=== PATIENT | male | born 1995 | race Caucasian/White ===

== ENCOUNTER 2016-06-23 06:40 | Day surgery (SDC) | payer SELFPAY ==
--- NOTE | 2016-06-22 17:24 | HP ---
DATE OF ADMISSION: 06/22/2016 HISTORY OF PRESENT ILLNESS: This is the first orthopedic outpatient admission for surgery for this 20-year- old male, who is experiencing increasing pain and problems with a fifth metacarpal fracture of the right hand. The patient suffered the injury on 06/13/2016. He was seen in the [facility] and new x-rays found. The patient have increased fracture displacement to almost 90 degrees or unacceptable position. With this in mind, the patient is now being brought in on outpatient basis for a surgical closed possible open reduction of the distal fifth metacarpal fracture and pin fixation. The procedure has been outlined to him. He understands risks and complications involved with that and has consented to the surgery. ALLERGIES: No known drug allergies. PAST MEDICAL HISTORY: Has been a healthy 20-year-old male, in [id number] distress. PHYSICAL EXAMINATION: HEAD, EYES, EARS, NOSE, AND THROAT: Normocephalic. NECK: Supple. CHEST: Clear. COR: Regular rate. ABDOMEN: Soft. GENITOURINARY: Intact. SOCIAL HISTORY: The patient has a negative alcohol use. Tobacco use is a quarter pack per day. He notes negative bleeding problem and negative blood clotting problem. ASSESSMENT: A displaced fifth metacarpal fracture of the right hand. PLAN: The plan is for the patient to undergo a closed possible open reduction of the fifth metacarpal fracture. ANA /[id number]
[~2016-06-23 06:40] MED LIST: Sodium Chloride 0.9% 10 ML Syringe FLUSH PRN
[2016-06-23] MEDS: Lidocaine 1%/Sod Bicarbonate in NS 8.4% 1 ML Syringe IV PRN (07:05)
[2016-06-23] MEDS: Lactated Ringers 1,000 ML IV SCH (07:05)
--- NOTE | 2016-06-23 07:16 | PCM.PREANE ---
Preanesthetic Assessment - ANESTHESIA/TRANSFUSION/FAMILY HX Anesthesia/Transfusion History: No Prior Anesthesia, No Prior Transfusion(s) Family History of Anesthesia Reaction: No - REVIEW OF SYSTEMS Constitutional: Reports: no symptoms POLL CLERK: Reports: no symptoms Respiratory: Reports: no symptoms Cardiovascular: Reports: no symptoms GI: Reports: no symptoms Other: Reports: none - PHYSICAL ASSESSMENT HR: 51 O2 Sat by Pulse Oximetry: 99 RR: 16 BP: 108/57 Temp: 97.2 C Height: 1.8 m Weight: 86.636 kg NPO Status Date: 06/23/16 NPO Status Time: 20:00 ASA Class: 2 Mental Status: alert & oriented x3 Airway Class: Mallampati = 1 Dentition: Reports: normal dentition (left upper molar broken tooth ) Thyro-Mental Finger Breadths: 3 Mouth Opening Finger Breadths: 5 ROM/Head Extension: full Respiratory Status: lungs clear to auscultation bilaterally Cardiovascular Status: regular rate & rhythm, normal S1, S2, no murmur, blood pressure WNL - LAB Values: Reviewed labs drawn on 06/22/16 Hgb 14.9 Plt 315 - ALLERGIES Allergies/Adverse Reactions: Allergies Allergy/AdvReac Type Severity Reaction Status Date / Time No Known Allergies Allergy Verified 06/22/16 14:46 - BLOOD Blood Available: No - ANESTHESIA PLAN Preop Beta Jaelyn: No Anesthesia Type Planned: general anesthesia - ACKNOWLEDGEMENTS Pt an appropriate candidate for the planned anesthesia: Yes Alternatives and risks of anesthesia discussed w pt/guardian: Yes Pt/Guardian understands and agree with anesthesia plan: Yes PreAnesthesia Questionnaire - Past Health History Medical/Surgical History: Denies Medical/Surgical History HEENT History: Reports: None Cardiovascular History: Reports: None Respiratory History: Reports: None Gastrointestinal History: Reports: None Genitourinary History: Reports: None Musculoskeletal History: Reports: None Neurological History: Reports: None Psychiatric History: Reports: None Endocrine/Metabolic History: Reports: None Hematologic History: Reports: None Immunologic History: Reports: None Oncologic (Cancer) History: Reports: None Dermatologic History: Reports: None - Infectious Disease History Infectious Disease History: Reports: None - Past Surgical History HEENT Surgical History: Reports: None Cardiovascular Surgical History: Reports: None Respiratory Surgical History: Reports: None GI Surgical History: Reports: None Male Surgical History: Reports: None Endocrine Surgical History: Reports: None Neurological Surgical History: Reports: None Musculoskeletal Surgical History: Reports: None Oncologic Surgical History: Reports: None - SUBSTANCE USE Smoking Status *Q: Current Some Day Smoker Tobacco Use Within Last Twelve Months: Cigarettes Recreational Drug Use History: No - HOME MEDS Home Medications: Home Meds . [No Known Home Meds] 06/22/16 [History] - CURRENT (IN HOUSE) MEDS Current Meds: Current Medications Lactated Ringer's (Ringers, Lactated) 1,000 mls @ 125 mls/hr IV ASDIRECTED DAGOBERTO Stop: 06/23/16 23:00 Lidocaine/Sodium Bicarbonate (Buffered Lidocaine 1% In Ns 8.4%) 0.25 ml IV ONETIME PRN PRN Reason: Prior to IV Start Stop: 06/23/16 18:00 Sodium Chloride (Saline Flush) 10 ml FLUSH ASDIRECTED PRN PRN Reason: Keep Vein Open Stop: 06/23/16 18:00
[2016-06-23] MEDS ORDERED: Ondansetron 4 MG/2 ML SDV IVPUSH PRN ×2 (07:40→08:41)
[2016-06-23] MEDS ORDERED: Ketorolac 30 MG/ML SDV IVPUSH PRN (07:40)
[2016-06-23] MEDS ORDERED: fentaNYL 100 MCG/2 ML SDV ONE ×2 (07:41→09:11)
[2016-06-23] MEDS ORDERED: Propofol 200 MG/20 ML SDV ONE (07:41)
[2016-06-23] MEDS ORDERED: Midazolam 1 MG/ML 2 ML SDV ONE (07:42)
[2016-06-23] MEDS ORDERED: Lidocaine 1% 2 ML SDV ONE ×2 (07:44)
[2016-06-23] MEDS ORDERED: Lactated Ringers 1,000 ML ONE (08:16)
[2016-06-23] MEDS ORDERED: Ondansetron 4 MG/2 ML SDV ONE (08:32)
[2016-06-23] MEDS ORDERED: Dexamethasone 4 MG/ML 5 ML MDV ONE (08:32)
[2016-06-23] MEDS ORDERED: diphenhydrAMINE 50 MG/ML SDV IVPUSH PRN (08:41)
[2016-06-23] MEDS: Iodine/Sodium Iodide 2% Tincture 30 ML Bottle ONE (08:52)
[2016-06-23] MEDS: Bupivacaine 0.5% 30 ML SDV ONE (08:56)
[2016-06-23] MEDS ORDERED: Ketorolac 30 MG/ML SDV ONE (09:01)
--- NOTE | 2016-06-23 09:25 | PCM.POSTAN ---
POST ANESTHESIA ASSESSMENT - MENTAL STATUS Mental Status: alert - VITAL SIGNS Pulse Rate: 38 SaO2: 100 Resp Rate: 12 Blood Pressure: 137/85 Temperature: 98.1 C - RESPIRATORY Respiratory Status: respiratory rate WNL, airway patent, O2 saturation stable - CARDIOVASCULAR CV Status: pulse rate WNL, blood pressure stable - GASTROINTESTINAL GI Status: no symptoms - PAIN Pain Score: 6 (resting comfortably ) - POST OP HYDRATION Hydration Status: adequate & stable
[2016-06-23] MEDS: Morphine 15 MG Tab.ER PO SCH (09:34)
[2016-06-23] MEDS: fentaNYL 100 MCG/2 ML SDV IVPUSH PRN (09:39)
[2016-06-23] MEDS ORDERED: Meperidine PF 50 MG/ML Syringe IVPUSH PRN (09:50)
[2016-06-23] MEDS: Acetaminophen/HYDROcodone 325-5 MG Tab PO PRN (09:52)
--- NOTE | 2016-06-23 10:01 | CR ---
Right fifth finger: Five view centered to the right fifth finger were obtained utilizing C-arm device. Comparison: Previous study of 06/22/16. Study shows reduction and pinning of distal right fifth metacarpal fracture. Previous angulation has been corrected. Fluoroscopy time given as 15.1 seconds. Impression: 1. Reduction and pinning of previously noted fifth metacarpal fracture. Diagnostic code #2
[2016-06-23 10:40] VITALS: BP 121/75
--- NOTE | 2016-06-23 11:09 | PCM48HPAN ---
Post Anesthesia Note - EVALUATION WITHIN 48HRS OF ANESTHETIC Vital Signs in Normal Range: Yes Patient Participated in Evaluation: Yes Respiratory Function Stable: Yes Airway Patent: Yes Cardiovascular Function Stable: Yes Hydration Status Stable: Yes Pain Control Satisfactory: Yes Nausea and Vomiting Control Satisfactory: Yes Mental Status Recovered: Yes - COMMENTS/OBSERVATIONS Free Text/Narrative:: Patient discharged per protocol. Report from nurse notes that he met all criteria and was stable to discharge.
--- NOTE | 2016-06-24 07:10 | OR ---
DATE OF OPERATION: 06/23/2016 SURGEON: Anoop Grant MD PREOPERATIVE DIAGNOSIS: Displaced unstable distal fifth metacarpal fracture, right hand. POSTOPERATIVE DIAGNOSIS: Displaced unstable distal fifth metacarpal fracture, right hand. ANESTHESIA: General. OPERATION PERFORMED: 1. Attempted closed reduction, distal fifth metacarpal fracture. 2. Open reduction and internal fixation K-wire, distal fifth metacarpal fracture. DESCRIPTION OF PROCEDURE: The patient was taken to the operating room in supine position and was placed under general anesthesia. The right hand was then prepped and draped by standard technique. The initial attempt at closed reduction was carried out using fluoroscopy to view the reduction. The fracture continued to maintain a severe angulation into the palmar aspect of his hand. Once that was found not to move or shift, it was felt there was probably soft tissue interposition. The operation then proceeded to a standard prepping and approach to the fifth metacarpal after the tourniquet was inflated. A lateral incision was used staying to the lateral side of the fifth metacarpal and incision carried, beginning proximally distal two-thirds of the metacarpal and extending to the joint line, penetrating through the skin and subcutaneous tissues. These were bluntly dissected down to the extensor tendon sheath. This was incised on the lateral side and then the operation identified the fracture. The periosteal elevators were used to lift the soft tissues off the fracture site on both sides and underneath the fracture area. Then, the interposition of the soft tissue was identified and removed. The fracture was then manipulated and brought back into place. It was a very unstable type fracture. Once the fracture was brought back, where it had adequate reduction, the K-wire was then inserted on the radial side of the fifth metacarpal and guided across the fracture with the fracture reduced. There was still a slight offset at the dorsal aspect. This ridge of bone was lightly trimmed with a rongeur, but otherwise the remaining portion of the fracture was reduced quite nicely and held in place by a cerclage #1 Vicryl suture to help reinforce the K-wire that was present. The fluoroscopy was used. Hard copy x-rays were taken. These again were found to be satisfactory of good reduction. The operation then proceeded with irrigation of wound area. Periosteal tissues were then closed with a 5-0 Vicryl. The skin was closed with 4-0 Prolene. The patient was placed in standard dressings and splint. He tolerated this whole procedure well and left the operating room in stable condition to his room for recovery. ESTIMATED BLOOD LOSS: MMODAL /[id number]
== END 2016-06-23 10:36 | disposition home or self-care (01) ==
LOC: JD.SDS 06:40
PROVIDERS: ATTEND Specialist
PROC: 0PSP04Z Reposition Right Metacarpal with Internal Fixation Device, Open Approach (ICD-10-PCS; principal; 2016-06-23)
DX: S62.396A Other fracture of fifth metacarpal bone, right hand, initial encounter for closed fracture (principal); F17.210 Nicotine dependence, cigarettes, uncomplicated
CPT/HCPCS: 26615; 76000; A9270; J1100; J1885; J2250; J2405; J3010; J7120; 01830; J2704

== ENCOUNTER 2020-03-20 16:48 | Emergency (ER) | payer SELFPAY ==
--- NOTE | 2020-03-20 17:48 | EDM.PDOC ---
ED HPI GENERAL MEDICAL PROBLEM - General Chief Complaint: General Stated Complaint: LUMP ON SIDE OF NECK AND SORE THROAT Time Seen by Provider: 03/20/20 17:24 Source of Information: Reports: Patient, RN Notes Reviewed History Limitations: Reports: No Limitations - History of Present Illness INITIAL COMMENTS - FREE TEXT/NARRATIVE: Patient is a 24-year-old male who presents to the ED for the evaluation of a lump to his right mandible. The patient notes he was seen at [facility] last week, he was tested for COVID-19 and strep throat, and was found to have strep throat at that time. He was placed on amoxicillin and took this as prescribed, but he still has the lump underneath his right mandible. He states that it does become bigger when he eats and becomes more tender. He is not had any fevers or chills, cough or shortness of breath. He is not in any respiratory distress, and he states he can still swallow just fine. He does have some bad teeth on this area, but states he does not have any tooth pain. He has been using ibuprofen and heat packs to the area. Treatments ENVIRONMENTAL AID: Reports: Other (see below) Other Treatments ENVIRONMENTAL AID: motrin Right Jaw Pain Score (Numeric/FACES): 3 - Related Data Allergies Allergy/AdvReac Type Severity Reaction Status Date / Time No Known Allergies Allergy Verified 06/22/16 14:46 Home Meds: Home Meds Clindamycin HCl 300 mg PO TID 7 Days #23 capsule 03/20/20 [Rx] Past Medical History - Past Health History Medical/Surgical History: Denies Medical/Surgical History HEENT History: Reports: None Cardiovascular History: Reports: None Respiratory History: Reports: None Gastrointestinal History: Reports: None Genitourinary History: Reports: None Musculoskeletal History: Reports: None Neurological History: Reports: None Psychiatric History: Reports: None Endocrine/Metabolic History: Reports: None Hematologic History: Reports: None Immunologic History: Reports: None Oncologic (Cancer) History: Reports: None Dermatologic History: Reports: None - Infectious Disease History Infectious Disease History: Reports: None - Past Surgical History HEENT Surgical History: Reports: None Cardiovascular Surgical History: Reports: None Respiratory Surgical History: Reports: None GI Surgical History: Reports: None Male Surgical History: Reports: None Endocrine Surgical History: Reports: None Neurological Surgical History: Reports: None Musculoskeletal Surgical History: Reports: None Other Musculoskeletal Surgeries/Procedures:: right hand fracture Oncologic Surgical History: Reports: None Social & Family History - Tobacco Use Tobacco Use Status *Q: Current Every Day Tobacco User Years of Tobacco use: 4 Packs/Tins Daily: 0.5 - Caffeine Use Caffeine Use: Reports: Coffee, Soda - Recreational Drug Use Recreational Drug Use: No ED ROS GENERAL - Review of Systems Review Of Systems: Comprehensive ROS is negative, except as noted in HPI. ED EXAM, GENERAL - Physical Exam Exam: See Below Exam Limited By: No Limitations General Appearance: Alert, WD/WN, No Apparent Distress Throat/Mouth: Normal Inspection, Normal Lips, Normal Teeth, Normal Gums, Normal Oropharynx, Other (there is fullness in his right mandible, this is somewhat tender as well.) Respiratory/Chest: No Respiratory Distress, Lungs Clear, Normal Breath Sounds, No Accessory Muscle Use, Chest Non-Tender Cardiovascular: Normal Peripheral Pulses, Regular Rate, Rhythm, No Edema, No Murmur Extremities: Normal Inspection, Normal Capillary Refill Neurological: Alert, Oriented, Normal Cognition, No Motor/Sensory Deficits Psychiatric: Normal Affect, Normal Mood Skin Exam: Warm, Dry, Intact, Normal Color, No Rash Course - Vital Signs Last Recorded V/S: Last Vital Signs Temp 98.2 F 03/20/20 17:19 Pulse 71 03/20/20 17:19 Resp 20 03/20/20 17:19 BP 129/67 03/20/20 17:19 Pulse Ox 100 03/20/20 17:19 - Re-Assessments/Exams Free Text/Narrative Re-Assessment/Exam: 03/20/20 17:55 Patient is a 24-year-old male who presents to the ED for the evaluation of his ongoing mandible lump. I do believe this could be a sialadenitis patient be started on clindamycin at this time, 600 mg to start and then 3 her milligrams 3 times daily x7 days. I will have him follow-up with his regular provider next week if he is not feeling much better. I did give him other general conservative recommendations. Departure - Departure Time of Disposition: 17:56 Disposition: Home, Self-Care 01 Condition: Good Clinical Impression: Sialadenitis - Discharge Information *PRESCRIPTION DRUG MONITORING PROGRAM REVIEWED*: No *COPY OF PRESCRIPTION DRUG MONITORING REPORT IN PATIENT TANYA: No Prescriptions: Clindamycin HCl 300 mg PO TID 7 Days #23 capsule Instructions: Parotitis, [id number] Referrals: PCP,None [Primary Care Provider] - Additional Instructions: You were evaluated in the ER today for your right lower jaw swelling. You were started on an antibiotic for suspected infection of your salivary gland on that side. Dosing will be 2 tabs to start, and then 1 tab 3 times daily for 7 days. Please continue to use 600 mg ibuprofen every 6 hours for further pain relief. Do not exceed 3200 mg of ibuprofen in a 24-hour time span. You may use ice or heat to the area as well, to provide further relief from pain and swelling. I would recommend you follow-up in clinic next week with your regular provider i f your symptoms are not getting much better. Please return to the ER at any time if your symptoms change or worsen. Sepsis Event Note (ED) - Evaluation Sepsis Screening Result: No Definite Risk - Focused Exam Vital Signs: Vital Signs Temp Pulse Resp BP Pulse Ox 03/20/20 17:19 98.2 F 71 20 129/67 100
[2020-03-20 18:24] VITALS: BP 140/87; PULSE 56
== END 2020-03-20 18:20 | disposition home or self-care (01) ==
LOC: JD.ED 16:48
DX: K11.20 Sialoadenitis, unspecified (principal); F17.210 Nicotine dependence, cigarettes, uncomplicated
CPT/HCPCS: 99282; 99283